=== PATIENT | female | born 1950 | race Caucasian/White ===

== ENCOUNTER → 2017-03-17 | Outpatient (CLI) | payer OTHER ==
[~2017-03-17] MED LIST: AMBIEN 5 MG TABL5 M1 PO; FEMRING1 EAC1 VG; PROAIR HFA8.5 GM PO; XANAX 0.5 MG0.5 MG PO
== END ==
LOC: RAD 03:04
DX: Z12.31 Encounter for screening mammogram for malignant neoplasm of breast (principal)

== ENCOUNTER → 2018-09-07 | Outpatient (CLI) | payer OTHER | LOC: BC 01:30 | DX: Z12.31 Encounter for screening mammogram for malignant neoplasm of breast (principal) ==

== ENCOUNTER → 2019-09-11 | Outpatient (CLI) | payer OTHER | LOC: RAD 01:28 | DX: Z12.31 Encounter for screening mammogram for malignant neoplasm of breast (principal) ==

== ENCOUNTER → 2021-02-17 | Outpatient (CLI) | payer OTHER | LOC: BC 09:28 | DX: Z12.31 Encounter for screening mammogram for malignant neoplasm of breast (principal) ==